=== PATIENT | female | born 1985 | race Caucasian/White ===

== ENCOUNTER 2017-12-15 19:40 | Emergency (ER) | payer BC, OTHER ==
[~2017-12-15] VITALS: Ht 162.6 cm; Wt 74.2 kg
[2017-12-15] MEDS ORDERED: ONDANSETRON ODT 4 MG PO ONE (20:00)
[2017-12-15] MEDS ORDERED: SODIUM CHLORIDE FLUSH 10ML SYR IVF ONE ×2 (20:00→21:00)
[2017-12-15] MEDS ORDERED: MORPHINE SULFATE 4 MG/ML, 1ML IVPush PRN (20:00)
[2017-12-15] MEDS ORDERED: ONDANSETRON ODT 4 MG ONE (20:06)
[2017-12-15] MEDS ORDERED: MORPHINE SULFATE 4 MG/ML, 1ML ONE (20:06)
[2017-12-15 20:12] LABS: BASOPHILS # (AUTO) 0.07 x10^3/uL (0-0.1); BASOPHILS % (AUTO) 1 % (0-1); EOSINOPHILS # (AUTO) 0.24 x10^3/uL (0-0.4); EOSINOPHILS % (AUTO) 2 % (1-7); LYMPHOCYTES # (AUTO) 3.26 x10^3/uL (1-3.4); LYMPHOCYTES % (AUTO) 27 % (22-44); MD NO; MEAN CORPUSCULAR HEMOGLOBIN 29.6 pg (27.0-34.8); MEAN CORPUSCULAR HGB CONC 34.1 g/dL (32.4-35.8); MEAN CORPUSCULAR VOLUME 86.8 fL (80-100); MEAN PLATELET VOLUME 8.5 fL (7.4-10.4); MONOCYTES # (AUTO) 0.61 x10^3/uL (0.2-0.8); MONOCYTES % (AUTO) 5 % (2-9); NEUTROPHILS % (AUTO) 65 % (42-75); PLATELET COUNT 214 x10^3/uL (130-400); RED BLOOD COUNT 5.38 x10^6/uL (3.82-5.3); RED CELL DISTRIBUTION WIDTH 14.1 % (9.6-15.2)
[2017-12-15 20:19] LABS: MICROSCOPIC AUTO
[2017-12-15 20:20] LABS: CULTURE INDICATED? YES
[2017-12-15 20:20] LABS: ANION GAP 7 mmol/L (5-15); CALCIUM 8.8 mg/dL (8.5-10.1); CHLORIDE 108 mmol/L (98-107); CREATININE 0.93 mg/dL (0.55-1.02)
[2017-12-15 20:21] LABS: ALBUMIN 4.6 g/dL (3.4-5.0)
[2017-12-15 20:25] LABS: ALKALINE PHOSPHATASE 113 U/L (45-117); BILIRUBIN,TOTAL 0.3 mg/dL (0.2-1.0); TOTAL PROTEIN 8.5 g/dL (6.4-8.2)
[2017-12-15 20:34] LABS: ALANINE AMINOTRANSFERASE 31 U/L (12-78)
[2017-12-15] MEDS ORDERED: OMNIPAQUE 350 MG/ML, 100ML BOTTLE ONE (21:18)
[2017-12-15 21:28] VITALS: BP 129/74
== END 2017-12-15 21:54 | disposition home or self-care (01) ==
LOC: ED 20:22
DX: N30.00 Acute cystitis without hematuria (principal); R19.7 Diarrhea, unspecified
CPT/HCPCS: 36415; 74177; 80053; 81001; 84703; 85025; 87077; 87086; 96374; 99285; Q0162; Q9967; 87186